=== PATIENT | female | born 1970 | race Caucasian/White ===

== ENCOUNTER → 2016-11-09 | Day surgery (SDC) | payer OTHER ==
[~2016-11-09] MED LIST: BIRTH CONTROL; NECON PO; ULTRAM PO
--- NOTE | ~2016-11-09 | OR ---
Unit #: [id number] #: [id number] Patient: BHARTI GUY [id number] [address] [place], [place] [address] [id number] MR#: [id number] NAME: BHARTI GUY. ROOM: Date of Procedure: 11/09/2016 Admission Date: 11/09/2016 Surgeon: David Martin III, M.D. : 1970 Attending Physician: David Martin III, M.D. Primary Care Physician: Primary Care Physician No OPERATIVE REPORT PREOPERATIVE DIAGNOSIS Biliary colic with gallstones. POSTOPERATIVE DIAGNOSIS Biliary colic with gallstones. PROCEDURE PERFORMED Laparoscopic cholecystectomy. ANESTHESIA General. SPECIMENS Gallbladder to pathology. COMPLICATIONS None apparent. ESTIMATED BLOOD LOSS Minimal. INDICATIONS FOR PROCEDURE This is a 45-year-old lady, who has been having some intermittent right upper quadrant pain. She is here today for laparoscopic cholecystectomy after gallstones were found on a CT scan. DESCRIPTION OF PROCEDURE After consent was obtained, the patient was brought to the operating room and placed in the supine position. General anesthetic was administered, and her abdomen was prepped and draped in standard surgical fashion. I made a 5-mm incision in the right upper quadrant. I used an Optiview to enter the peritoneal cavity without any difficulty. CO2 pneumoperitoneum was then established. Next, a second 5-mm port was placed in the supraumbilical region and an 11-mm port was placed in the midepigastric region and a third 5-mm port was placed in the right lateral subcostal region. I began by retracting the gallbladder superiorly and laterally. I dissected out the cystic duct and cystic artery, and after they were carefully identified, I placed two clips proximally and one clip distally along both structures and then they were divided. There was also a small posterior branch that was also clipped and divided. I then took the gallbladder off the liver bed using the hook cautery. There was a little bit of spillage of bile that was mopped up with a 4x4. I then extracted Unit #: [id number] #: [id number] Patient: BHARTI GUY the gallbladder through the epigastric port site without dilatation of the fascia. I had excellent hemostasis. The 4x4 was removed. All needle, sponge, and instrument counts were correct x2. I removed all the trocars and released the pneumoperitoneum. All the incisions were injected with 0.25% plain Marcaine, and I reapproximated the skin edges with interrupted 4-0 Vicryl subcuticular suture. Steri-Strips were then applied. The patient tolerated the procedure without any problems and returned to the recovery room in stable condition. Dictated by... David Martin III, M.D. VCL/laura TD: 11/10/2016 04:33 JOB #: [id number] OPERATIVE REPORT X David Martin III, MD PROCEDURE OPERATIVE NOTE
== END | disposition home or self-care (01) ==
LOC: CSUR 10:49
DX: K80.10 Calculus of gallbladder with chronic cholecystitis without obstruction (principal); Z98.890 Other specified postprocedural states
CPT/HCPCS: 84703; 88304; J0330; J1100; J2250; J2405; J2710; J3010